=== PATIENT | female | born 1955 | race Caucasian/White ===

== ENCOUNTER 2017-10-28 08:47 | Outpatient (CLI) | payer OTHER | END 2017-10-28 08:48 | disposition home or self-care (01) | LOC: BICMAMMO 08:47 | PROVIDERS: ATTEND Obstetrics & Gynecology | DX: Z12.31 Encounter for screening mammogram for malignant neoplasm of breast (principal); Z80.3 Family history of malignant neoplasm of breast | CPT/HCPCS: 77063; 77067 ==

== ENCOUNTER 2019-12-02 11:05 | Outpatient (CLI) | payer BC ==
--- NOTE | 2019-12-03 12:19 | NM ---
RADIOIODINE THYROID UPTAKE AND SCAN: Date: 12/02/2019 HISTORY: Thyrotoxicosis, unspecified, without thyrotoxic crisis. RADIOPHARMACEUTICAL: 223 microcuries Iodine-123 administered orally. FINDINGS: There is diffuse increased uptake in both lobes of the thyroid gland without focal cold or hot nodule s. The 24 hour uptake measures 78% (normal 10-30%). IMPRESSION: Findings are consistent with hyperthyroid Graves' disease. POS: [facility]
== END 2019-12-02 11:06 | disposition home or self-care (01) ==
LOC: NM 11:05
PROVIDERS: ATTEND Internal Medicine Endocrinology, Diabetes & Metabolism
DX: E05.90 Thyrotoxicosis, unspecified without thyrotoxic crisis or storm (principal)
CPT/HCPCS: 78014; A9516

== ENCOUNTER 2019-12-09 12:50 | Outpatient (CLI) | payer BC ==
--- NOTE | 2019-12-09 14:05 | NM ---
Radioiodine thyroid initial treatment HISTORY: Thyrotoxicosis. FINDINGS: Procedure was explained in informed consent obtained. The procedure, including risks and al ternatives, routine precautions and protocols discussed with the patient. She voices understanding and will follow-up clinically with Dr. Castorena. Patient was dosed with 13.8 mCi iodine-131 p.o. at 1346 hours without difficulty. She was watched for approximately 20 minutes prior to discharge. IMPRESSION : Successful administration of iodine-131 initial treatment.
== END 2019-12-09 12:51 | disposition home or self-care (01) ==
LOC: NM 12:50
PROVIDERS: ATTEND Internal Medicine Endocrinology, Diabetes & Metabolism
DX: E05.90 Thyrotoxicosis, unspecified without thyrotoxic crisis or storm (principal)
CPT/HCPCS: 79005; A9517